=== PATIENT | male | born 1975 | race African-American/Black ===

== ENCOUNTER 2023-02-16 20:22 | Emergency (ER) | payer SELFPAY ==
[2023-02-16] MEDS ORDERED: Acyclovir 200 mg Capsule ONE (21:17)
[2023-02-17 20:00] LABS: Syphilis Antibody Index 9.28 S/CO (<1.00 Non-Reactive)
[2023-02-17 20:07] LABS: Syphilis Antibody INDETERMINATE (Nonreactive); Syphilis Titer Non-Reactive Titer (Negative)
[2023-02-18 10:56] LABS: Chlam.trachomatis by PCR,Urine Not Detected (NotDetected); GC N.gonorrhoeae PCR,UrineVOID Not Detected (NotDetected)
== END 2023-02-16 21:46 | disposition home or self-care (01) ==
LOC: MADERS 20:22
DX: N48.5 Ulcer of penis (principal); A60.01 Herpesviral infection of penis; F17.210 Nicotine dependence, cigarettes, uncomplicated
CPT/HCPCS: 86593; 86780; 87491; 87591; 87661; 99283

== ENCOUNTER 2024-09-30 12:56 | Emergency (ER) | payer BC, SELFPAY | END 2024-09-30 13:39 | disposition home or self-care (01) | LOC: MADERS 12:56 | DX: I10 Essential (primary) hypertension (principal); F17.210 Nicotine dependence, cigarettes, uncomplicated | CPT/HCPCS: 99283 ==